=== PATIENT | male | born 2000 | race Caucasian/White ===

== ENCOUNTER 2024-11-17 21:31 | Emergency (ER) | payer SELFPAY ==
[~2024-11-17] VITALS: Ht 175.3 cm; Wt 75.0 kg
[2024-11-17 22:01] VITALS: O2SAT 98
[2024-11-17 22:13] VITALS: TEMP 98.2
[2024-11-18 02:41] LABS: CHLORIDE 105 mEq/L (98-107); SODIUM 137 mEq/L (136-145)
[2024-11-18 02:42] LABS: CARBON DIOXIDE 25 mEq/L (21-32)
[2024-11-18 02:47] LABS: BASOPHILS % 0.5 % (0.0-2.0); CREATININE 0.9 mg/dL (0.6-1.3); EOSINOPHILS % 3.3 % (0.0-5.0); GLUCOSE 96 mg/dL (70-105); HEMATOCRIT. 38.3 % (42.0-52.0); HEMOGLOBIN. 12.9 g/dL (14.0-18.0); LYMPHOCYTES % 43.3 % (20.0-50.0); MEAN CORPUSCULAR HEMOGLOBIN 30.6 pg (28.0-32.0); MEAN CORPUSCULAR HGB CONC 33.8 g/dL (31.0-37.0); MEAN CORPUSCULAR VOLUME 90.4 fL (80.0-94.0); MEAN PLATELET VOLUME 8.2 fl (7.4-10.4); MONOCYTES % 7.5 % (2.0-8.0); NEUTROPHILS % 45.4 % (40.0-76.0); PLATELET 248 x1000/uL (130-400); RED BLOOD CELL COUNT 4.23 mill/uL (4.7-6.1); RED CELL DISTRIBUTION WIDTH 12.8 % (11.6-14.6); UREA NITROGEN BLOOD 8 mg/dL (9-23); WHITE BLOOD COUNT 6.2 x1000/uL (4.5-11.0)
[2024-11-18 02:48] LABS: TROPONIN I HIGH SENSITIVITY 5 ng/L (3.0-53)
[2024-11-18] MEDS ORDERED: DEXAMETHASONE 10 MG/ML VIAL PO ONE (04:00)
[2024-11-18] MEDS ORDERED: KETOROLAC 15MG/ML VIAL IM ONE (04:00)
[2024-11-18 04:53] VITALS: PULSE 63; RESP 18; O2SAT 94
[2024-11-18] MEDS: IPRATROPIUM/ALBUTEROL 0.5-3(2.5)MG/3ML NEB HHN ONE (04:53)
[2024-11-18] MEDS ORDERED: PRED5TAB48 MT (05:35)
[2024-11-18 05:55] VITALS: BP 121/69; PULSE 69; RESP 16
[2024-11-18] MEDS: KETOROLAC 15MG/ML VIAL IM NR (05:55)
[2024-11-18] MEDS: DEXAMETHASONE 10 MG/ML VIAL PO NR (05:55)
[2024-11-18] MEDS ORDERED: IPRATROPIUM/ALBUTEROL 0.5-3(2.5)MG/3ML NEB HHN NR (06:00)
== END 2024-11-18 00:54 | disposition home or self-care (01) ==
LOC: ER 21:31
DX: J45.909 Unspecified asthma, uncomplicated (principal)
CPT/HCPCS: 36415; 71045; 93005; 96372; 99285; 80048; 85025; 84484; 94640; J1100; J1885; Z7610 ×3

== ENCOUNTER 2024-11-20 19:41 | Emergency (ER) | payer SELFPAY ==
[~2024-11-20] VITALS: Ht 172.7 cm; Wt 64.3 kg
[~2024-11-20 19:41] MED LIST: PRED5TAB48 MT
[2024-11-20 19:58] VITALS: O2SAT 98
[2024-11-20] MEDS ORDERED: D-ME473S50 PO (20:56)
[2024-11-20 21:00] VITALS: BP 144/77; PULSE 77; RESP 16; TEMP 37.22520; O2SAT 99
== END 2024-11-20 21:01 | disposition home or self-care (01) ==
LOC: ER 19:41
DX: R05.9 Cough, unspecified (principal); R07.89 Other chest pain
CPT/HCPCS: 71045; 99283